=== PATIENT | female | born 1995 | race American Indian/Alaskan Native ===

== ENCOUNTER 2017-01-17 15:54 | Emergency (ER) | payer SELFPAY ==
[2017-01-17 16:38] LABS: Basophils % (Auto) 0.3 % (0.0-1.8); Eosinophils % (Auto) 1.9 % (0.0-4.3); Hematocrit 40.4 % (30.3-42.9); Mean Corpuscular HGB Conc 32 % (30-34); Mean Corpuscular Volume 80 fl (79-97); Platelet Count 199 K/mm3 (140-440); Red Blood Count 5.04 M/mm3 (3.65-5.03); Red Cell Distribution Width 15.2 % (13.2-15.2); White Blood Count 10.2 K/mm3 (4.5-11.0)
[2017-01-17 17:03] LABS: Mean Corpuscular Hemoglobin 26 pg (28-32)
[2017-01-17] MEDS ORDERED: DECADRON IM STA (17:50)
[2017-01-17] MEDS ORDERED: ROCEPHIN IM STA (17:50)
[2017-01-17] MEDS ORDERED: XYLOCAINE 1% MPF 5 mL INFILTRATI ONE (17:51)
[2017-01-17] MEDS ORDERED: MOTRIN PO ONE (17:52)
[2017-01-17] MEDS ORDERED: ATROVENT IH ONE (18:24)
[2017-01-17] MEDS ORDERED: XOPENEX IH ONE (18:24)
--- NOTE | 2017-01-17 18:49 | XRay Report ---
FINAL REPORT PROCEDURE: XR CHEST ROUTINE 2V TECHNIQUE: PA and lateral chest radiographs were obtained. CPT 67876 HISTORY: cough, wheezing and fever COMPARISON: No prior studies are available for comparison. FINDINGS: Heart: Normal contour. Mediastinum/Vessels: Normal contour. Lungs/Pleural space: No infiltrate, effusion, or pneumothorax. Bony thorax: No acute osseous abnormality. Other: IMPRESSION: No pulmonary infiltrates are identified.
[2017-01-17 19:06] VITALS: BP 102/62
--- NOTE | 2017-01-17 19:41 | Emergency Department Report ---
Entered by RAMON MARIN, acting as scribe for MAKI SALEEM PA. HPI - General Chief Complaint: Upper Respiratory Infection Time Seen by Provider: 01/17/17 17:47 - HPI HPI: 21 y/o female presents to the ED c/o sore throat x 8 days. Associated symptoms include fever, chills, productive cough and body aches but she denies SOB, chest pain, nausea and vomiting. Pain is described as aching and 6/10 on a severity scale. Patient states sore throat is getting better and taking Vitamin C. No alleviating or aggravating factors. NKDA. LMP: 10/21/16. Denies any back or abdominal pain. ED Past Medical Hx - Past Medical History Previous Medical History?: Yes Hx Asthma: Yes - Surgical History Past Surgical History?: No - Family History Family history: no significant - Social History Smoking Status: Never Smoker Substance Use Type: Alcohol, Marijuana - Medications Home Medications: Home Medications Medication Instructions Recorded Confirmed Last Taken Type Cetirizine HCl [ZyrTEC] 10 mg PO QDAY #7 capsule 01/17/17 Unknown Rx Doxycycline [Vibramycin CAP] 100 mg PO Q12HR #20 capsule 01/17/17 Unknown Rx Fluticasone [Flonase] 1 spray NS QDAY #1 bottle 01/17/17 Unknown Rx predniSONE [Deltasone] 50 mg PO QDAY #5 tab 01/17/17 Unknown Rx ED Review of Systems ROS: Stated complaint: FEVER/FLU Other details as noted in HPI Comment: All other systems reviewed and negative Constitutional: chills, fever, other (body aches). denies: weakness ENT: throat pain, congestion. denies: ear pain Respiratory: cough, wheezing. denies: orthopnea, shortness of breath, SOB with exertion, SOB at rest, stridor Cardiovascular: denies: chest pain, palpitations, edema, syncope Gastrointestinal: denies: abdominal pain, nausea, vomiting Musculoskeletal: denies: back pain, arthralgia, myalgia Skin: denies: rash Neurological: denies: headache, weakness, numbness, paresthesias, confusion, abnormal gait, vertigo Physical Exam - Physical Exam Vital Signs: Vital Signs 01/17/17 16:09 Temperature 99.6 F Pulse Rate 107 H Respiratory 20 Rate Blood Pressure 131/74 O2 Sat by Pulse 99 Oximetry Vital Signs 01/17/17 01/17/17 01/17/17 16:09 19:05 19:17 Temperature 99.6 F 99.5 F Pulse Rate 107 H 108 H 92 H Respiratory 20 18 Rate Blood Pressure 131/74 Blood Pressure 102/62 [Left] O2 Sat by Pulse 99 100 Oximetry General: This is a 21-year-old female well-nourished well-developed in no acute distress Physical Exam: Head: Normocephalic atraumatic Mouth: Moist, no pharyngeal exudate or erythema. Uvula is midline and oral airway is patent. Neck: Supple, no C-spine tenderness, no tracheal deviation. Nontender to palpate. No adenopathy Ears: Bilateral TMs congested without erythema . bilateral EAC without any redness swelling or drainage. Maxillary and frontal sinuses nontender to palpate Eyes: Bilateral pupils equal and reactive to light, bilateral EOM intact. Bilateral sclera and conjunctiva without injection. Normal accommodation. Nose: Mucosa moist, NL mucosa. maxillary and frontal sinus non-tender to palpate. Lungs: Scattered wheezing to upper lung briceno. Normal work of breathing. No rhonchi or rales. Dry cough Extremity; No CCE. +2 pulses. No neurovascular compromise Cardiovascular: S1-S2, tachycardia at 107 ,regular rhythm. No murmurs. Skin: clean Dry and intact no rash no lesions Psych: Normal mood and behavior ED Course Vital Signs 01/17/17 16:09 Temperature 99.6 F Pulse Rate 107 H Respiratory 20 Rate Blood Pressure 131/74 O2 Sat by Pulse 99 Oximetry Vital Signs 01/17/17 01/17/17 01/17/17 16:09 19:05 19:17 Temperature 99.6 F 99.5 F Pulse Rate 107 H 108 H 92 H Respiratory 20 18 Rate Blood Pressure 131/74 Blood Pressure 102/62 [Left] O2 Sat by Pulse 99 100 Oximetry - Reevaluation(s) Reevaluation #1: 01/17/17 19:22 Patient given Rocephin 1 g IM in emergency room, Decadron 10 mg IM, Xopenex and Atrovent nebulizer. No wheezing status post nebulizer treatment. ED Medical Decision Making - Lab Data Result diagrams: 01/17/17 16:17 Lab Results 01/17/17 01/17/17 Range/Units :17 16:17 WBC 10.2 (4.5-11.0) K/mm3 RBC 5.04 H (3.65-5.03) M/mm3 Hgb 13.0 (10.1-14.3) gm/dl Hct 40.4 (30.3-42.9) % MCV 80 (79-97) fl MCH 26 L (28-32) pg MCHC 32 (30-34) % RDW 15.2 (13.2-15.2) % Plt Count 199 (140-440) K/mm3 Lymph % (Auto) 12.6 L (13.4-35.0) % [place] % (Auto) 5.6 (0.0-7.3) % Eos % (Auto) 1.9 (0.0-4.3) % Baso % (Auto) 0.3 (0.0-1.8) % Lymph # 1.3 (1.2-5.4) K/mm3 [place] # 0.6 (0.0-0.8) K/mm3 Eos # 0.2 (0.0-0.4) K/mm3 Baso # 0.0 (0.0-0.1) K/mm3 Seg Neutrophils % 79.6 H (40.0-70.0) % Seg Neutrophils # 8.1 H (1.8-7.7) K/mm3 HCG, Qual Negative (Negative) - Radiology Data Radiology results: report reviewed Chest x-ray revealed no acute cardiopulmonary findings - Medical Decision Making ED course: Patient here reports coughing and wheezing and she says she has asthma and uses albuterol inhaler. She says she's been taking her inhaler and vitamin C. Denies any shortness of breath or chest pain. Physical findings for acute exacerbation of asthma and upper respiratory tract infection. Patient was treated with Xopenex 0.63 mg, Atrovent 0.5 mg nebulizer and up and reevaluation she did not have any wheezing and says she felt better. Chest x- ray revealed no acute findings. Patient given Decadron 10 mg IM and Rocephin 1 g IM. I discussed the patient she needs to follow-up with her primary care physician and 2 days follow-up asthma exacerbation. Chest x-ray and CBC results given to patient and she voiced understanding of diagnosis and treatment plan. Diagnostic/labs: CBC the stable, chest x-ray reveals no acute findings 1. Acute cough 2. Acute asthma exacerbation, mild intermittent 3. Upper respiratory tract infection 4 body aches Patient discharged home with prescriptions for prednisone,, Zyrtec, Flonase doxycycline and to continue to use her albuterol inhaler and to follow-up with her primary care physician in 2 days. Critical care attestation.: If time is entered above; I have spent that time in minutes in the direct care of this critically ill patient, excluding procedure time. ED Disposition Clinical Impression: Cough, Body aches Acute asthma exacerbation Qualifiers: Asthma severity: mild intermittent Qualified Code(s): J45.21 - Mild intermittent asthma with (acute) exacerbation Upper respiratory tract infection Qualifiers: URI type: unspecified URI Qualified Code(s): J06.9 - Acute upper respiratory infection, unspecified Disposition: DC- TO HOME OR SELFCARE Is pt being admited?: No Does the pt Need Aspirin: No Condition: Stable Instructions: Asthma (ED), Upper Respiratory Infection (ED), Acute Cough (ED) Additional Instructions: Please follow up with primary care physician in 3 days Take medication as prescribed Follow-up with primary care physician in 2 days Continue Motrin or Tylenol for fever per dosing chart guidelines Prescriptions: Cetirizine HCl [ZyrTEC] 10 mg PO QDAY #7 capsule Doxycycline [Vibramycin CAP] 100 mg PO Q12HR #20 capsule Fluticasone [Flonase] 1 spray NS QDAY #1 bottle predniSONE [Deltasone] 50 mg PO QDAY #5 tab Referrals: PRIMARY CARE, [Primary Care Provider] - 01/19/17 Forms: Work/School Release Form(ED) This documentation as recorded by the TANIA delgado ELIZABETH,accurately reflects the service I personally performed and the decisions made by ,MAKI SALEEM PA.
== END 2017-01-17 19:48 | disposition home or self-care (01) ==
LOC: ED 15:54
DX: J45.21 Mild intermittent asthma with (acute) exacerbation (principal); J06.9 Acute upper respiratory infection, unspecified; F12.10 Cannabis abuse, uncomplicated
CPT/HCPCS: 36415; 71020; 84703; 85025; 96372; 99284; J0696; J1100

== ENCOUNTER 2017-07-22 14:58 | Emergency (ER) | payer SELFPAY ==
[2017-07-22 15:08] VITALS: BP 133/64
--- NOTE | 2017-07-22 16:18 | Emergency Department Report ---
ED ENT HPI - General Chief complaint: Sore Throat Stated complaint: SORE THROAT,H/A, BODY ACHE Time Seen by Provider: 07/22/17 16:14 Source: patient Mode of arrival: Ambulatory Limitations: No Limitations - History of Present Illness MD complaint: sore throat -: Gradual, days(s) Severity: mild Severity scale (0 -10): 5 Quality: aching Consistency: intermittent Improves with: swallowing Worsens with: swallowing Context- Ear: recent illness Associated Symptoms: pain with swallowing, sore throat - Related Data Previous Rx's Medication Instructions Recorded Last Taken Type Cetirizine HCl [ZyrTEC] 10 mg PO QDAY #7 capsule 01/17/17 Unknown Rx Doxycycline [Vibramycin CAP] 100 mg PO Q12HR #20 capsule 01/17/17 Unknown Rx Fluticasone [Flonase] 1 spray NS QDAY #1 bottle 01/17/17 Unknown Rx predniSONE [Deltasone] 50 mg PO QDAY #5 tab 01/17/17 Unknown Rx Amoxicillin [Amoxicillin TAB] 875 mg PO BID #20 tablet 07/22/17 Unknown Rx Allergies Allergy/AdvReac Type Severity Reaction Status Date / Time shellfish derived Allergy Anaphylaxis Verified 01/17/17 16:04 ED Dental HPI - General Chief complaint: Sore Throat Stated complaint: SORE THROAT,H/A, BODY ACHE Time Seen by Provider: 07/22/17 16:14 Source: patient Mode of arrival: Ambulatory Limitations: No Limitations - Related Data Previous Rx's Medication Instructions Recorded Last Taken Type Cetirizine HCl [ZyrTEC] 10 mg PO QDAY #7 capsule 01/17/17 Unknown Rx Doxycycline [Vibramycin CAP] 100 mg PO Q12HR #20 capsule 01/17/17 Unknown Rx Fluticasone [Flonase] 1 spray NS QDAY #1 bottle 01/17/17 Unknown Rx predniSONE [Deltasone] 50 mg PO QDAY #5 tab 01/17/17 Unknown Rx Amoxicillin [Amoxicillin TAB] 875 mg PO BID #20 tablet 07/22/17 Unknown Rx Allergies Allergy/AdvReac Type Severity Reaction Status Date / Time shellfish derived Allergy Anaphylaxis Verified 01/17/17 16:04 ED Review of Systems ROS: Stated complaint: SORE THROAT,H/A, BODY ACHE Other details as noted in HPI Constitutional: no symptoms reported ENT: throat pain Respiratory: no symptoms reported ED Past Medical Hx - Past Medical History Previous Medical History?: Yes Hx Asthma: Yes - Surgical History Past Surgical History?: No - Social History Smoking Status: Never Smoker Substance Use Type: Non Opiate Pain - Medications Home Medications: Home Medications Medication Instructions Recorded Confirmed Last Taken Type Cetirizine HCl [ZyrTEC] 10 mg PO QDAY #7 capsule 01/17/17 Unknown Rx Doxycycline [Vibramycin CAP] 100 mg PO Q12HR #20 capsule 01/17/17 Unknown Rx Fluticasone [Flonase] 1 spray NS QDAY #1 bottle 01/17/17 Unknown Rx predniSONE [Deltasone] 50 mg PO QDAY #5 tab 01/17/17 Unknown Rx Amoxicillin [Amoxicillin TAB] 875 mg PO BID #20 tablet 07/22/17 Unknown Rx ED Physical Exam - General Limitations: No Limitations General appearance: alert, in no apparent distress - Head Head exam: Present: atraumatic - Eye Eye exam: Present: normal appearance - ENT ENT exam: Present: normal exam - Expanded ENT Exam Expanded TM/Canal exam: Erythema: Right TM Mouth exam: Present: normal external inspection Throat exam: Positive: tonsillar erythema - Neck Neck exam: Present: normal inspection, tenderness, full ROM. Absent: meningismus - Respiratory Respiratory exam: Present: normal lung sounds bilaterally - Cardiovascular Cardiovascular Exam: Present: regular rate - GI/Abdominal GI/Abdominal exam: Present: soft ED Course Vital Signs 07/22/17 15:05 Temperature 98 F Pulse Rate 66 Respiratory 18 Rate Blood Pressure 133/64 O2 Sat by Pulse 99 Oximetry Critical care attestation.: If time is entered above; I have spent that time in minutes in the direct care of this critically ill patient, excluding procedure time. ED Disposition Clinical Impression: Pharyngitis Qualifiers: Pharyngitis/tonsillitis etiology: other specified organisms Qualified Code(s): J02.8 - Acute pharyngitis due to other specified organisms Disposition: DC-01 TO HOME OR SELFCARE Is pt being admited?: No Does the pt Need Aspirin: No Condition: Stable Prescriptions: Amoxicillin [Amoxicillin TAB] 875 mg PO BID #20 tablet Referrals: PRIMARY CARE, [Primary Care Provider] - 3-5 Days Forms: Work/School Release Form(ED)
== END 2017-07-22 16:27 | disposition home or self-care (01) ==
LOC: ED 14:58
DX: J02.8 Acute pharyngitis due to other specified organisms (principal); J45.909 Unspecified asthma, uncomplicated; Z91.013 Allergy to seafood
CPT/HCPCS: 99282